=== PATIENT | female | born 1990 | race Caucasian/White ===

== ENCOUNTER 2022-06-13 07:46 | Inpatient (IN) ==
[2022-06-13] MEDS ORDERED: OXYTOCIN 30 UNITS/500 ML BAG IV PRN ×2 (08:54→22:11)
[2022-06-13 09:24] LABS: Hematocrit (blood only) 36.5 % (34.1-44.9); Hemoglobin 12.2 g/dl (12.0-16.0); Mean Corpuscular Hgb Conc 33.4 g/dL (32.0-36.0); Mean Corpuscular Volume 89.9 fL (80.0-100.0); Mean Platelet Volume 9.7 fL (9.4-12.3); Platelet Count 168 K/uL (130-400); RDW Coefficient of Variation 13.6 % (11.5-14.5); RDW Standard Deviation 44.8 fL (36.4-46.3); Red Blood Count 4.06 M/uL (3.93-5.22); White Blood Count 8.59 K/ul (4.8-10.8)
--- NOTE | 2022-06-13 09:49 | History & Physical Report ---
Date of Service June 13, 2022 Assessment & Plan (1) Encounter for elective induction of labor: Admission and Anticipated Discharge Date Admission Date: June 13, 2022 History of Present Illness Chief Complaint: induction of labor Primary Care Provider: Jennifer Wilson DO 32 F [id number] at 39.4 admitted for elective induction of labor. Allergies Allergy/AdvReac Type Severity Reaction Status Date / Time latex AdvReac Rash Verified 06/13/22 09:21 Home Medications Medication Instructions Recorded Confirmed Type prenat.vits,cristiano,[id number] 1 tab PO DAILY 06/13/22 06/13/22 History Patient History Medical History (Updated 06/13/22 @ 09:47 by Doug Rivera MD) Acne Chronic rhinitis Constipation Esophageal reflux Vitamin D deficiency Family History Other Diabetes Heart disease Social History Smoking Status: Never smoker Second Hand Exposure: No; Hx Alcohol Use: No Hx Substance Use: No Preferred Language: Yoruba Communication Ability: Effective Senior Net Application Developer Required: No Beliefs That Will Affect Care: None marital status: Current Living Situation: Spouse Other Information That Helps Us Care for You: No Feels Safe at Home: Yes Safety Concerns: Feels Safe At This Time Assistive Devices: None OB History x1 VP PATIENT History neg Review of Systems All systems reviewed & are unremarkable except as noted in HPI & below Physical Exam Constitutional: WD/WN, vitals as above Eyes: PERRL, conjunctivae normal, anicteric sclerae Neck: trachea midline, no thyromegaly Respiratory: normal respiratory effort, lungs clear to auscultation Cardiovascular: RRR, no murmur, no edema Gastrointestinal (Abdomen): Inspection/Auscultation: abdomen normal to inspection Skin: no rashes, warm and dry Neurologic: patellar DTR's 2+ bilat, sensation intact Psychiatric: A+Ox3, euthymic affect Genitourinary: no vaginal lesions, no adnexal mass normal external appearance OB Exam Abdomen: + fundal height and + vertex Manual OB Exam: + cervical dilation 2 cm, + cervical effacement 50% and + station high OB Exam Monitor Tracing: + external FHT monitor used, + external uterine monitor used, + category I and + normal FHT variability cervix posterior, soft will start induction with PO Cytotec Results & Data ([facility] [place]) Vital Signs (Past 12 Hours) Vital Signs Temp Pulse Resp BP 06/13/22 08:29 36.3 C L 20 06/13/22 07:54 36.3 C L 95 H 20 114/71 Laboratory Results 06/13/22 06/13/22 08:03 09:13 WBC 8.59 RBC 4.06 Hgb 12.2 Hct 36.5 MCV 89.9 MCH 30.0 MCHC 33.4 RDW Std Deviation 44.8 RDW Coeff of Robbi 13.6 Plt Count 168 MPV 9.7 SARS-CoV-2, RNA, NAAT NEGATIVE Code Status & VTE Plan VTE Prophylaxis Plan VTE Prophylaxis will be ordered: No Monitoring External Monitor Cat 1
[2022-06-13] MEDS: miSOPROStoL 50 MCG TAB PO SCH ×3 (10:29→18:39)
[2022-06-13] MEDS ORDERED: miSOPROStoL 50 MCG TAB PO SCH (12:00)
--- NOTE | 2022-06-13 16:53 | Labor Progress Brief Note ---
Date of Service June 13, 2022 Assessment & Plan Admission and Anticipated Discharge Date Admission Date: June 13, 2022 Physical Exam Genitourinary: Manual OB Exam: + cervical dilation 3 cm and 4 cm, + cervical effacement 70%, + station -2 and + amniotic fluid clear OB Exam Monitor Tracing: + external FHT monitor used, + external uterine monitor used, + category I and + normal FHT variability AROM with clear fluid Results & Data ([facility] [place]) Vital Signs (Past 12 Hours) Vital Signs Temp Pulse Resp BP 06/13/22 08:29 36.3 C L 20 06/13/22 14:38 70 06/13/22 14:38 98/56 L 06/13/22 07:54 36.3 C L 95 H 20 114/71
[2022-06-13] MEDS: LACTATED RINGER'S 1,000 ML IV PRN ×2 (17:00→18:06)
[2022-06-13] MEDS ORDERED: BUPIVACAINE 0.25% 30 ML VIAL ONE (17:08)
[2022-06-13] MEDS ORDERED: ePHEDrine sulfate 50 MG/ML AMP ONE (17:08)
[2022-06-13] MEDS ORDERED: SODIUM CHLORIDE 0.9% INJ 10 ML VIAL ONE (17:08)
[2022-06-13] MEDS ORDERED: LIDOCAINE 2%/EPINEPHRINE 1:200,000 20 ML SDV ONE (17:08)
[2022-06-13] MEDS ORDERED: fentaNYL citrate 100 MCG/2 ML VIAL ONE (17:08)
[2022-06-13] MEDS ORDERED: fentaNYL 2MCG/ML ROPIVACAINE 1.25MG/ML 100 ML BAG EPI ONE (17:09)
[2022-06-13] MEDS ORDERED: NALBUPHINE HCL INJ 10 MG/ML AMP IV PRN (17:17)
[2022-06-13] MEDS ORDERED: ONDANSETRON INJ 2 MG/ML 2 ML VIAL IV PRN (17:17)
[2022-06-13] MEDS ORDERED: fentaNYL 2MCG/ML ROPIVACAINE 1.25MG/ML 100 ML BAG EPI PRN (17:17)
[2022-06-13] MEDS ORDERED: ePHEDrine sulfate 50 MG/ML AMP IV PRN (17:17)
[2022-06-13] MEDS ORDERED: NALOXONE HCL 1 MG in SODIUM CHLORIDE 0.9% 1000ML 1,000 ML IV PRN (17:17)
[2022-06-13] MEDS ORDERED: diphenhydrAMINE 50 MG/ML VIAL IV PRN (17:17)
--- NOTE | 2022-06-13 17:20 | Anesthesiology Consultation ---
Date of Service June 13, 2022 Assessment & Plan (1) Encounter for pre-operative examination: Chart Review Chart Review: Patient NOT seen in Pre Admission Testing and Acceptable Risk for Labor Epidural Consults Requested none History Height/Weight Height: 5 ft 4 in Weight: 85.729 kg Allergies Allergy/AdvReac Type Severity Reaction Status Date / Time latex AdvReac Rash Verified 06/13/22 09:21 Medications Home Medications Medication Instructions Recorded Confirmed Last Taken prenat.vits,cristiano,[id number] 1 tab PO DAILY 06/13/22 06/13/22 06/12/22 21:00 Active Medications Generic Name Dose Route Start Last Admin Trade Name Freq PRN Reason Stop Dose Admin Lactated Ringer's 1,000 mls @ 125 mls/hr 06/13/22 08:54 06/13/22 17:00 Lr IV 06/15/22 08:53 999 mls/hr .Q8H PRN Administration L&D Protocol Protocol Misoprostol 50 mcg 06/13/22 10:30 06/13/22 14:36 Misoprostol 50 Mcg Tab PO 07/13/22 10:29 50 mcg Q4H PASHA Administration Past Medical History Medical History (Updated 06/13/22 @ 17:20 by Fausto Mcclain MD) Acne Chronic rhinitis Constipation Esophageal reflux Vitamin D deficiency Exercise / Class Metabolic Activity II 4-5 Yardwork/Stairs/Walk up hill Past Family History Family History Other Diabetes Heart disease Past Anesthesia History No Hx of Anesthesia Complications and No Family Hx of Anesthesia Complications Social History Smoking Status: Never smoker Hx Alcohol Use: No Hx Substance Use: No substance use type: does not use Physical Exam Vital Signs Last Vital Signs Temp 36.3 C L 06/13/22 08:29 Pulse 70 06/13/22 14:38 Resp 20 06/13/22 08:29 BP 98/56 L 06/13/22 14:38 Testing Laboratory Results 06/13/22 09:13
--- NOTE | 2022-06-13 20:11 | Delivery Summary ---
Vaginal Delivery Summary Date of Service June 13, 2022 Vaginal Delivery Summary Delivery Note live female MATTHEW over intact perineum with delayed cord clamping and Apgars 8/9 weight pending. Cord blood obtained followed by spontaneous delivery of intact placenta. No tears. EBL 100 ml. Final sponge and instrument count are correct. Mom and baby stable.
--- NOTE | 2022-06-13 20:59 | Anesthesia Procedure Note ---
Date of Service June 13, 2022 Anesthesia Post Epidural Note Vital Signs Vital Signs: Temp Pulse Resp BP Pulse Ox 36.4 C L 96 H 20 101/56 L 97 06/13/22 19:02 06/13/22 20:55 06/13/22 19:31 06/13/22 20:55 06/13/22 20:01 Pain Intensity Lower Abdomen: Pain Intensity: 8 Notes Mental Status: alert / awake / arousable and participated in evaluation Patient Amnestic to Procedure: No Nausea / Vomiting: adequately controlled Pain: adequately controlled Airway Patency, RR, SpO2: stable & adequate BP & HR: stable & adequate Hydration State: stable & adequate Neuraxial Anesthesia: was administered and sensory block is resolving Anesthetic Complications: no major complications apparent and Pt Satisfied with anesthetic care Epidural: Removed without complications and With tip intact
[2022-06-13] MEDS ORDERED: DIPHTHERIA/TETANUS/PERTUSSIS 0.5 ML SYR/VIAL IM ONE (22:11)
[2022-06-13] MEDS ORDERED: bisacodyL 10 MG SUPP PR PRN (22:11)
[2022-06-13] MEDS ORDERED: ACETAMINOPHEN 325 MG TAB PO PRN (22:11)
[2022-06-13] MEDS ORDERED: BENZOCAINE 20% AER SPR 82.5 GM CAN EXT PRN (22:11)
[2022-06-13] MEDS ORDERED: HYDROCORTISONE ACETATE 25 MG SUPP PR PRN (22:11)
[2022-06-14] MEDS: DOCUSATE SODIUM 100 MG CAP PO SCH ×3 (03:51→20:54)
[2022-06-14 07:22] LABS: Hematocrit (blood only) 37.9 % (34.1-44.9); Hemoglobin 12.7 g/dl (12.0-16.0); Mean Corpuscular Hgb Conc 33.5 g/dL (32.0-36.0); Mean Corpuscular Volume 89.6 fL (80.0-100.0); Mean Platelet Volume 9.9 fL (9.4-12.3); Platelet Count 167 K/uL (130-400); RDW Coefficient of Variation 13.5 % (11.5-14.5); Red Blood Count 4.23 M/uL (3.93-5.22); White Blood Count 12.95 K/ul (4.8-10.8)
[2022-06-14] MEDS: FERROUS SULFATE 325 MG TAB PO SCH (07:45)
[2022-06-14] MEDS: PRENATAL VITAMIN 1 TAB PO SCH (07:45)
[2022-06-14] MEDS: IBUPROFEN 600 MG TAB PO PRN ×4 (07:46→23:33)
[2022-06-14] MEDS: miSOPROStoL 50 MCG TAB PO SCH ×4 (07:47→18:53)
[2022-06-14] MEDS ORDERED: NON-FORMULARY MEDICATION (Prenat.Vits,Cal,Min-Iron-Folic Tablet) PO SCH (09:00)
--- NOTE | 2022-06-14 09:36 | Obstetrical Progress Note ---
Date of Service June 14, 2022 Assessment & Plan Admission and Anticipated Discharge Date Admission Date: June 13, 2022 Subjective Patient is seen and examined. She feels well, no complaints. Ambulating without dizziness Voiding without difficulty Tolerating regular diet with out N&V Bleeding is minimal No fever/ chills/ CP/ SOB/ N&V/ Leg pain Bottle feeding without problems Vital Signs Temp Pulse Pulse Resp BP BP Pulse Ox 06/14/22 07:45 36.6 C 63 20 97/57 L 98 06/14/22 03:48 36.5 C 60 18 109/68 95 06/13/22 23:35 36.6 C 75 20 100/63 96 06/13/22 22:23 95 H 06/13/22 22:23 100/59 L 06/13/22 22:13 73 06/13/22 22:13 95/51 L 06/13/22 22:03 86 06/13/22 22:03 102/61 06/13/22 21:53 82 06/13/22 21:53 97/56 L 06/13/22 21:43 77 06/13/22 21:43 101/61 O2 Del Method 06/14/22 07:45 Room Air 06/14/22 03:48 Room Air 06/13/22 23:35 Room Air 06/13/22 22:23 06/13/22 22:23 06/13/22 22:13 06/13/22 22:13 06/13/22 22:03 06/13/22 22:03 06/13/22 21:53 06/13/22 21:53 06/13/22 21:43 06/13/22 21:43 Lab Results 06/13/22 06/13/22 06/14/22 Range/Units 08:03 09:13 06:08 WBC 8.59 12.95 H (4.8-10.8) K/ul RBC 4.06 4.23 (3.93-5.22) M/uL Hgb 12.2 12.7 (12.0-16.0) g/dl Hct 36.5 37.9 (34.1-44.9) % MCV 89.9 89.6 (80.0-100.0) fL MCH 30.0 30.0 (25.0-34.0) pg MCHC 33.4 33.5 (32.0-36.0) g/dL RDW Std Deviation 44.8 44.0 (36.4-46.3) fL RDW Coeff of Robbi 13.6 13.5 (11.5-14.5) % Plt Count 168 167 (130-400) K/uL MPV 9.7 9.9 (9.4-12.3) fL SARS-CoV-2, RNA, NAAT NEGATIVE (NEGATIVE) PE: General: Alert, orientedx3, NAD Abd: soft, NT, fundus firm, below Umbilicus Perineum intact, Lochia rubra minimal Ext; NT, no edema AP: 32 yo s/p , ppd# 1 VSS Afebrile doing well Continue routine care All questions were answered D/C home tomorrow Results & Data ([facility]) Vital Signs (Past 12 Hours) Vital Signs Temp Pulse Pulse Resp BP BP Pulse Ox 06/14/22 07:45 36.6 C 63 20 97/57 L 98 06/14/22 03:48 36.5 C 60 18 109/68 95 06/13/22 23:35 36.6 C 75 20 100/63 96 06/13/22 22:23 95 H 06/13/22 22:23 100/59 L 06/13/22 22:13 73 06/13/22 22:13 95/51 L 06/13/22 22:03 86 06/13/22 22:03 102/61 06/13/22 21:53 82 06/13/22 21:53 97/56 L 06/13/22 21:43 77 06/13/22 21:43 101/61 O2 Del Method 06/14/22 07:45 Room Air 06/14/22 03:48 Room Air 06/13/22 23:35 Room Air 06/13/22 22:23 06/13/22 22:23 06/13/22 22:13 06/13/22 22:13 06/13/22 22:03 06/13/22 22:03 06/13/22 21:53 06/13/22 21:53 06/13/22 21:43 06/13/22 21:43
[2022-06-14] MEDS ORDERED: bisacodyL 5 MG TABEC PO SCH (20:00)
[2022-06-15] MEDS: IBUPROFEN 600 MG TAB PO PRN ×2 (06:25→10:47)
[2022-06-15 07:23] LABS: Hematocrit (blood only) 39.1 % (34.1-44.9); Hemoglobin 13.1 g/dl (12.0-16.0)
--- NOTE | 2022-06-15 08:30 | Obstetrical Progress Note ---
Date of Service June 15, 2022 Assessment & Plan Admission and Anticipated Discharge Date Admission Date: June 13, 2022 Subjective Patient is seen and examined. She feels well, no complaints. Ambulating without dizziness Voiding without difficulty Tolerating regular diet with out N&V Bleeding is minimal No fever/ chills/ CP/ SOB/ N&V/ Leg pain Bottle feeding without problems Vital Signs Temp Pulse Resp BP 06/14/22 23:35 37 C 59 L 18 108/67 Lab Results 06/13/22 06/13/22 06/14/22 Range/Units 08:03 09:13 06:08 WBC 8.59 12.95 H (4.8-10.8) K/ul RBC 4.06 4.23 (3.93-5.22) M/uL Hgb 12.2 12.7 (12.0-16.0) g/dl Hct 36.5 37.9 (34.1-44.9) % MCV 89.9 89.6 (80.0-100.0) fL MCH 30.0 30.0 (25.0-34.0) pg MCHC 33.4 33.5 (32.0-36.0) g/dL RDW Std Deviation 44.8 44.0 (36.4-46.3) fL RDW Coeff of Robbi 13.6 13.5 (11.5-14.5) % Plt Count 168 167 (130-400) K/uL MPV 9.7 9.9 (9.4-12.3) fL SARS-CoV-2, RNA, NAAT NEGATIVE (NEGATIVE) 06/15/22 Range/Units 06:38 WBC (4.8-10.8) K/ul RBC (3.93-5.22) M/uL Hgb 13.1 (12.0-16.0) g/dl Hct 39.1 (34.1-44.9) % MCV (80.0-100.0) fL MCH (25.0-34.0) pg MCHC (32.0-36.0) g/dL RDW Std Deviation (36.4-46.3) fL RDW Coeff of Robbi (11.5-14.5) % Plt Count (130-400) K/uL MPV (9.4-12.3) fL SARS-CoV-2, RNA, NAAT (NEGATIVE) PE: General: Alert, orientedx3, NAD Abd: soft, NT, fundus firm, below Umbilicus Perineum intact, Lochia rubra minimal Ext; NT, no edema AP: 32 yo s/p , ppd# 2 VSS Afebrile doing well Continue routine care All questions were answered D/C home , f/u in office Results & Data ([facility]) Vital Signs (Past 12 Hours) Vital Signs Temp Pulse Resp BP 06/14/22 23:35 37 C 59 L 18 108/67
[2022-06-15] MEDS: DOCUSATE SODIUM 100 MG CAP PO SCH (09:29)
[2022-06-15] MEDS: FERROUS SULFATE 325 MG TAB PO SCH (09:29)
[2022-06-15] MEDS: PRENATAL VITAMIN 1 TAB PO SCH (09:29)
[2022-06-15] MEDS ORDERED: MEASLES, MUMPS & RUBELLA VIRUS VIAL SQ ONE (09:39)
== END 2022-06-15 11:45 | disposition home or self-care (01) | DRG 807 ==
LOC: 4S1 07:46 → 4E2 23:59

== ENCOUNTER 2023-07-01 07:17 | Inpatient (IN) ==
[2023-07-01] MEDS ORDERED: OXYTOCIN 30 UNITS/500 ML BAG IV PRN ×3 (08:00→18:16)
[2023-07-01] MEDS ORDERED: LIDOCAINE 1% LOCAL 20 ML VIAL INFIL PRN (08:00)
--- NOTE | 2023-07-01 08:04 | History & Physical Report ---
Date of Service July 01, 2023 Assessment & Plan (1) Post-dates : Admission and Anticipated Discharge Date Admission Date: July 01, 2023 History of Present Illness Chief Complaint: induction of labor Primary Care Provider: Jennifer Wilson, 33 F P2012 admitted for induction of labor for post-dates . GBS is negative Allergies Allergy/AdvReac Type Severity Reaction Status Date / Time latex AdvReac Rash Verified 07/01/23 09:19 Home Medications Medication Instructions Recorded Confirmed Type vits no.124-ferrous fum 1 tab PO DAILY@08 #90 tabs 06/14/22 07/01/23 Rx 27 mg iron-folic acid 800 mcg tablet ( Vitamin) Patient History Medical History Acne Chronic rhinitis Constipation Encounter for elective induction of labor Encounter for pre-operative examination Esophageal reflux Short interval between pregnancies affecting , antepartum Last 05/2022 Uterine fibroid in 2.5cm by 2.5 cm by 2.6 cm seen on ultrasound this Vitamin D deficiency Surgical History No pertinent past surgical history Family History Other Diabetes Heart disease Social History Smoking Status: Never smoker Second Hand Exposure: No; Do You Dip or Chew Tobacco: No; Hx Alcohol Use: No Hx Substance Use: No Preferred Language: [place] Communication Ability: Effective Rehabilitation Supervisor Required: No Beliefs That Will Affect Care: None marital status: marital status details: Qamar Current Living Situation: Spouse Current Living Situation Comment: Lives with and 2 daughters current occupational status: employed 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 Other Information That Helps Us Care for You: No Feels Safe at Home: Yes Safety Concerns: Feels Safe At This Time Assistive Devices: None 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 Review of Systems All systems reviewed & are unremarkable except as noted in HPI & below Physical Exam Constitutional: WD/WN, vitals as above Eyes: PERRL, conjunctivae normal, anicteric sclerae Respiratory: normal respiratory effort, lungs clear to auscultation Cardiovascular: RRR, no murmur, no edema Gastrointestinal (Abdomen): Inspection/Auscultation: abdomen normal to inspection Musculoskeletal: Extremities: extremities normal to inspection Skin: no rashes, warm and dry Neurologic: patellar DTR's 2+ bilat, sensation intact Psychiatric: A+Ox3, euthymic affect Genitourinary: Manual OB Exam: + cervical dilation 3 cm, + cervical effacement 50% and + station -2 OB Exam Monitor Tracing: + external FHT monitor used, + external uterine monitor used, + category I and + normal FHT variability Results & Data Vital Signs (Past 12 Hours) Vital Signs Temp Pulse Resp BP 07/01/23 07:38 36.6 C 20 07/01/23 07:35 83 117/58 L Laboratory Results Laboratory Results - last 48 hr 07/01/23 08:15 WBC 7.76 RBC 3.85 L Hgb 11.1 L Hct 33.2 L MCV 86.2 MCH 28.8 MCHC 33.4 RDW Std Deviation 43.5 RDW Coeff of Robbi 13.9 Plt Count 179 MPV 9.5 Code Status & VTE Plan VTE Prophylaxis Plan VTE Prophylaxis will be ordered: No Monitoring External Monitor Cat 1
[2023-07-01 08:33] LABS: Hematocrit (blood only) 33.2 % (37.0-47.0); Hemoglobin 11.1 g/dl (12.0-16.0); Mean Corpuscular Hemoglobin 28.8 pg (25.0-34.0); Mean Corpuscular Hgb Conc 33.4 g/dL (32.0-36.0); Mean Corpuscular Volume 86.2 fL (80.0-100.0); Mean Platelet Volume 9.5 fL (9.4-12.4); Platelet Count 179 K/uL (130-400); RDW Coefficient of Variation 13.9 % (11.5-14.5); RDW Standard Deviation 43.5 fL (36.4-46.3); Red Blood Count 3.85 M/uL (4.20-5.40); White Blood Count 7.76 K/ul (4.8-10.8)
[2023-07-01] MEDS: LACTATED RINGER'S 1,000 ML IV PRN ×3 (08:35→13:01)
[2023-07-01] MEDS ORDERED: ePHEDrine sulfate 50 MG/ML AMP ONE (10:45)
[2023-07-01] MEDS ORDERED: LIDOCAINE 2%/EPINEPHRINE 1:200,000 20 ML PF ONE (10:45)
[2023-07-01] MEDS ORDERED: SODIUM CHLORIDE 0.9% PF INJ 10 ML VIAL ONE (10:45)
[2023-07-01] MEDS ORDERED: fentaNYL citrate PF 100 MCG/2 ML VIAL ONE (10:45)
[2023-07-01] MEDS ORDERED: BUPIVACAINE 0.25% PF 30 ML VIAL ONE (10:45)
[2023-07-01] MEDS ORDERED: fentaNYL 2MCG/ML ROPIVACAINE 1.25MG/ML 100 ML BAG EPI ONE (10:46)
[2023-07-01] MEDS ORDERED: diphenhydrAMINE 50 MG/ML VIAL IV PRN (11:03)
[2023-07-01] MEDS ORDERED: ROPIVACAINE 0.5% PF 5 MG/ML 20 ML VIAL EPI PRN (11:03)
[2023-07-01] MEDS ORDERED: NALBUPHINE HCL INJ 10 MG/ML AMP IV PRN (11:03)
[2023-07-01] MEDS ORDERED: ePHEDrine sulfate 50 MG/ML AMP IV PRN (11:03)
[2023-07-01] MEDS ORDERED: NALOXONE HCL 0.4 MG/1 ML VIAL/CARP IV PRN (11:03)
[2023-07-01] MEDS ORDERED: fentaNYL 2MCG/ML ROPIVACAINE 1.25MG/ML 100 ML BAG EPI PRN (11:03)
[2023-07-01] MEDS ORDERED: fentaNYL citrate PF 100 MCG/2 ML VIAL EPI STA (11:03)
[2023-07-01] MEDS ORDERED: SODIUM CHLORIDE 0.9% PF INJ 10 ML VIAL EPI PRN (11:03)
[2023-07-01] MEDS ORDERED: fentaNYL citrate PF 100 MCG/2 ML VIAL EPI PRN (11:03)
[2023-07-01] MEDS ORDERED: NALOXONE HCL 1 MG in SODIUM CHLORIDE 0.9% 1000ML 1,000 ML IV PRN (11:03)
[2023-07-01] MEDS ORDERED: BUPIVACAINE 0.25% PF 30 ML VIAL EPI PRN (11:03)
[2023-07-01] MEDS ORDERED: SODIUM CHLORIDE 0.9% PF INJ 10 ML VIAL EPI STA (11:03)
[2023-07-01] MEDS ORDERED: BUPIVACAINE 0.25% PF 30 ML VIAL EPI STA (11:03)
[2023-07-01] MEDS ORDERED: LIDOCAINE 2% MPF LOCAL 5 ML VIAL EPI PRN (11:03)
[2023-07-01] MEDS ORDERED: LIDOCAINE 2%/EPINEPHRINE 1:200,000 20 ML PF EPI STA (11:03)
--- NOTE | 2023-07-01 11:03 | Anesthesiology Consultation ---
Date of Service July 01, 2023 Assessment & Plan Chart Review Chart Review: Patient NOT seen in Pre Admission Testing and Acceptable Risk for Labor Epidural Consults Requested none History Height/Weight Height: 5 ft 4 in Weight: 92.986 kg Allergies Allergy/AdvReac Type Severity Reaction Status Date / Time latex AdvReac Rash Verified 07/01/23 09:19 Medications Home Medications Medication Instructions Recorded Confirmed Last Taken vits no.124-ferrous fum 1 tab PO DAILY@08 #90 tabs 06/14/22 07/01/23 06/30/23 27 mg iron-folic acid 800 mcg tablet ( Vitamin) Active Medications Generic Name Dose Route Start Last Admin Trade Name Freq PRN Reason Stop Dose Admin Lactated Ringer's 1,000 mls @ 125 mls/hr 07/01/23 08:00 07/01/23 08:35 Lr IV 07/03/23 07:59 125 mls/hr .Q8H PRN Administration L&D Protocol Protocol Oxytocin 30 units in 500 mls @ 5 mls/hr 07/01/23 08:02 07/01/23 09:50 Pitocin IV 07/03/23 08:01 0.3 units/hr .Q24H PRN 5 mls/hr Labor Induction/Augmentation Titration Protocol 0.3 UNITS/HR Past Medical History Medical History Acne Chronic rhinitis Constipation Encounter for elective induction of labor Encounter for pre-operative examination Esophageal reflux Short interval between pregnancies affecting , antepartum Last 05/2022 Uterine fibroid in 2.5cm by 2.5 cm by 2.6 cm seen on ultrasound this Vitamin D deficiency Past Family History Family History Other Diabetes Heart disease Past Surgical History Surgical History No pertinent past surgical history Social History Smoking Status: Never smoker Do You Dip or Chew Tobacco: No Hx Alcohol Use: No Hx Substance Use: No substance use type: does not use Physical Exam Vital Signs Last Vital Signs Temp 97.9 F 07/01/23 07:38 Pulse 83 07/01/23 10:53 Resp 18 07/01/23 09:50 BP 101/65 07/01/23 10:53 Testing Laboratory Results 07/01/23 08:15 Blood Type A Positive 07/01/23 08:15 Antibody Screen NEGATIVE 07/01/23 08:15
--- NOTE | 2023-07-01 13:41 | Labor Progress Brief Note ---
Date of Service July 01, 2023 Assessment & Plan Admission and Anticipated Discharge Date Admission Date: July 01, 2023 Physical Exam Genitourinary: Manual OB Exam: + cervical dilation 2 cm and 3 cm, + cervical effacement 60% and + station -2 OB Exam Monitor Tracing: + external FHT monitor used, + external uterine monitor used, + category I and + normal FHT variability Results & Data Vital Signs (Past 12 Hours) Vital Signs Temp Pulse Resp BP Pulse Ox 07/01/23 07:38 36.6 C 20 07/01/23 13:38 92 H 99 07/01/23 13:34 82 109/54 L 07/01/23 13:33 76 100 07/01/23 13:29 81 93/54 L 07/01/23 13:28 90 97 07/01/23 13:25 83 93/51 L 07/01/23 13:23 74 98 07/01/23 13:18 76 98 07/01/23 13:19 78 91/55 L 07/01/23 13:13 79 98 07/01/23 13:14 85 91/52 L 07/01/23 13:09 83 90/54 L 07/01/23 13:08 80 98 07/01/23 13:04 91 H 94/55 L 07/01/23 13:03 92 H 99 07/01/23 13:02 90 95/50 L 07/01/23 12:58 100 H 98 07/01/23 12:56 87 96/51 L 07/01/23 12:53 91 H 99 07/01/23 12:50 94 H 100/53 L 07/01/23 12:48 81 99 07/01/23 12:43 99 H 97 07/01/23 12:44 83 96/56 L 07/01/23 12:41 96 H 98/50 L 07/01/23 12:38 87 97 07/01/23 12:33 99 H 97 07/01/23 12:34 96 H 94/55 L 07/01/23 12:28 84 97 07/01/23 12:27 72 88/51 L 07/01/23 12:23 89 97 07/01/23 12:18 76 97 07/01/23 12:13 78 97 07/01/23 12:10 76 90/54 L 07/01/23 12:08 79 91/55 L 97 07/01/23 12:06 80 91/54 L 07/01/23 12:04 78 99/58 L 07/01/23 12:03 93 H 99 07/01/23 12:02 85 20 96/51 L 07/01/23 12:00 87 95/52 L 07/01/23 11:58 79 20 100/58 L 97 07/01/23 11:56 93 H 96/53 L 07/01/23 11:54 84 20 98/55 L 07/01/23 11:53 81 99 07/01/23 11:52 85 97/52 L 07/01/23 11:50 71 20 98/52 L 07/01/23 11:48 75 99/58 L 99 07/01/23 11:46 79 20 99/58 L 07/01/23 11:43 71 97 07/01/23 11:44 77 97/55 L 07/01/23 11:42 77 20 98/56 L 07/01/23 11:40 71 97/53 L 07/01/23 11:38 80 18 102/57 L 97 07/01/23 11:36 76 96/52 L 07/01/23 11:34 74 98/56 L 07/01/23 11:33 80 100 07/01/23 11:32 80 18 102/56 L 07/01/23 11:30 36.4 C L 73 20 91/55 L 07/01/23 11:28 71 95/51 L 99 07/01/23 11:26 69 18 88/54 L 07/01/23 11:25 66 85/50 L 07/01/23 11:23 70 97 07/01/23 11:22 77 18 106/70 07/01/23 11:20 65 102/69 07/01/23 11:19 71 106/68 07/01/23 11:18 70 100 07/01/23 11:13 80 100 07/01/23 11:11 77 102/69 94 07/01/23 11:08 67 98 07/01/23 10:53 83 101/65 07/01/23 09:50 76 18 102/61 07/01/23 08:37 88 18 109/68 07/01/23 07:35 83 117/58 L
[2023-07-01] MEDS ORDERED: ONDANSETRON INJ 2 MG/ML 2 ML VIAL IV PRN (15:40)
[2023-07-01] MEDS ORDERED: NURSING L&D Epidural Breakthrough Pain Update ONE (16:54)
--- NOTE | 2023-07-01 17:47 | Delivery Summary ---
Vaginal Delivery Summary Date of Service July 01, 2023 Vaginal Delivery Summary live female MATTHEW with intact perineum Apgars 7/9 weight pending. Cord blood obtained followed by spontaneous delivery of intact placenta. No tears. EBL 100 ml. Final sponge and instrument count are correct. Mom and baby stable.
--- NOTE | 2023-07-01 17:59 | Anesthesia Procedure Note ---
Date of Service July 01, 2023 Anesthesia Post Epidural Note Vital Signs Vital Signs: Temp Pulse Resp BP Pulse Ox 36.9 C 74 20 103/50 L 98 07/01/23 15:59 07/01/23 17:43 07/01/23 17:40 07/01/23 17:43 07/01/23 17:34 Pain Intensity Bilateral Abdomen: Pain Intensity: 0 Notes Mental Status: alert / awake / arousable and participated in evaluation Nausea / Vomiting: adequately controlled Pain: adequately controlled Airway Patency, RR, SpO2: stable & adequate BP & HR: stable & adequate Hydration State: stable & adequate Neuraxial Anesthesia: was administered and sensory block is resolving Anesthetic Complications: no major complications apparent Epidural: Removed without complications and With tip intact
[2023-07-01] MEDS ORDERED: HYDROCORTISONE ACETATE 25 MG SUPP PR PRN (18:16)
[2023-07-01] MEDS ORDERED: BENZOCAINE 20% SPRY 85 APPLN/85 GM CAN EXT PRN (18:16)
[2023-07-01] MEDS ORDERED: DIPHTHERIA/TETANUS/PERTUSSIS Vaccine (Tdap, Age 7+yrs) 0.5mL SYR/VL IM ONE (18:16)
[2023-07-01] MEDS ORDERED: ACETAMINOPHEN 325 MG TAB PO PRN (18:16)
[2023-07-01] MEDS ORDERED: bisacodyL 10 MG SUPP PR PRN (18:16)
[2023-07-01] MEDS: DOCUSATE SODIUM 100 MG CAP PO SCH (20:22)
[2023-07-01] MEDS: IBUPROFEN 600 MG TAB PO PRN (20:22)
[2023-07-02] MEDS: IBUPROFEN 600 MG TAB PO PRN ×3 (04:00→13:31)
[2023-07-02 07:26] LABS: Hematocrit (blood only) 32.7 % (37.0-47.0); Hemoglobin 10.4 g/dl (12.0-16.0); Mean Corpuscular Hemoglobin 28.3 pg (25.0-34.0); Mean Corpuscular Hgb Conc 31.8 g/dL (32.0-36.0); Mean Corpuscular Volume 88.9 fL (80.0-100.0); Platelet Count 154 K/uL (130-400); RDW Coefficient of Variation 13.8 % (11.5-14.5); RDW Standard Deviation 44.9 fL (36.4-46.3); Red Blood Count 3.68 M/uL (4.20-5.40); White Blood Count 10.11 K/ul (4.8-10.8)
[2023-07-02] MEDS ORDERED: PRENATAL VITAMIN 1 TAB PO SCH ×2 (08:00)
[2023-07-02] MEDS ORDERED: FERROUS SULFATE 325 MG TAB PO SCH (08:00)
[2023-07-02] MEDS: DOCUSATE SODIUM 100 MG CAP PO SCH (08:57)
[2023-07-02] MEDS ORDERED: bisacodyL 5 MG TABEC PO SCH (20:00)
== END 2023-07-02 19:50 | disposition home or self-care (01) | DRG 807 ==
LOC: 4S1 07:17 → 4E2 20:11